=== PATIENT | female | born 1935 | race Caucasian/White ===

== ENCOUNTER 2017-08-15 16:15 | Inpatient (IN) ==
--- NOTE | 2017-08-16 17:22 | Internal Med History&Physical ---
Date of Encounter: 08/16/17 Time of Encounter: 17:20 Assessment and Plan (1) Physical deconditioning Current visit: Yes Status: Acute Will support him medically while she enters into physical and occupational therapies. Will consult physical medicine to see if she can benefit from any other modalities, etc. (2) COPD exacerbation Current visit: No Status: Acute We will continue on current regimen including tapering of steroids. She will be maintained on nebulized aerosols as ordered and breakthrough albuterol, as well. (3) Hypertension Current visit: No Status: Chronic Clinically stable. We will continue home regimen and follow. Qualifiers: Hypertension type: essential hypertension Qualified Code(s): I10 - Essential (primary) hypertension (4) DVT prophylaxis Current visit: No Status: Acute We will use heparin subcutaneously. (5) Hypoxia Current visit: No Status: Acute We will use oxygen supplementation as needed and follow. (6) Hyponatremia Current visit: No Status: Chronic This was most recently mild but we will follow. (7) Hypokalemia Current visit: Yes Status: Acute This is marginal but she is on steroids so we will follow and will check magnesium level. Internal Medicine - H&P: HPI Admitted From: Intrahospital Transfer Plans for Post Hospital Care: Home History of present illness: Ms. Perez is a 82 year old female With recently diagnosed COPD (about 3 or 4 months ago) she states that her breathing has been worsening over the last month but over the few days prior to her admission at [facility] in [place], she had progressively worsening shortness of breath and nocturnal cough. Her cough has been nonproductive, often taking her breath before admission, and making her dyspneic on exertion and at rest. She denies hemoptysis. She had no sore throat, loss of voice, diaphoresis, no fever, respiratory illness exposure, etc. Upon admission to the hospital, she was found to be hypoxic, was placed on oxygen supplementation, and given IV steroids. She improved with treatment but was markedly weak and unsteady on her legs. For this reason, she is transferred here for rehabilitation and returned to function. While hospitalized, she developed hoarseness in her voice remains "squeaky." She lives independently, since being . She has a son who lives nearby and is supported by her son and his . She smoked as a young adult but stopped 45 or 50 years ago. She has a history of depression and anxiety for which she takes quite a pain and Ativan. She is allergic to codeine which caused suicidal ideation. She has no other history of suicidal ideation or attempt. Patient has no complaint of chest discomfort, dyspnea, orthopnea, palpitations, nausea or vomiting, constipation or diarrhea, other changes in bowel habits, difficulty with urination, rash or itching, or other new complaints, except as mentioned above. Review of systems is otherwise unremarkable. Past Med Surg Social Fam HX - Past Medical History Medical history: arthritis, COPD, hypertension Psychiatric history: no psych history - Past Surgical History Surgical History: cholecystectomy, hysterectomy, other - Social History Smoking Status: Former smoker Smokeless Tobacco Status: No Alcohol use: none Drug use: none Internal Medicine - H&P: Meds Albuterol Sulfate [Proair Hfa] 2 puff IH Q4H PRN 12/05/15 [History] Amlodipine Besylate 10 mg PO DAILY 12/05/15 [History] Aspirin Enteric Coated [Aspirin EC] 81 mg PO DAILY 12/05/15 [History] Cholecalciferol (D-3) [Vitamin D] 5,000 unit PO DAILY 12/05/15 [History] LORazepam [Ativan] 0.5 mg PO QAM AND QHS 12/05/15 [History] Losartan Potassium [Cozaar] 100 mg PO DAILY 12/05/15 [History] Meclizine HCl [Verticalm] 25 mg PO BID PRN 12/05/15 [History] Metoprolol Tartrate [Lopressor] 50 mg PO DAILY 12/05/15 [History] Naproxen Sodium [Aleve] 220 mg PO BID PRN 12/05/15 [History] Pravastatin Sodium [Pravachol] 40 mg PO HS 12/05/15 [History] Quetiapine Fumarate [Seroquel] 25 mg PO QAM AND QHS 12/05/15 [History] Budesonide/Formoterol 160/4.5 [Symbicort 160/4.5] 2 puff IH BIDR 08/13/17 [ History] Ipratropium [place] 1 - 2 spray NS BID PRN 08/13/17 [History] Ipratropium/Albuterol Neb [Duoneb] 3 ml IH Q6H PRN 08/13/17 [History] GuaiFENesin ER [Mucinex] 600 mg PO BID tbbp.12hr 08/16/17 [Rx] GuaiFENesin/Dextromethorphan [Robitussin/Dm] 10 ml PO Q6HR PRN udc 08/16/17 [Rx ] Loratadine [Claritin] 10 mg PO DAILY tablet 08/16/17 [Rx] predniSONE [PredniSONE] See Taper PO DAILY #30 tablet 08/16/17 [Rx] 3 Allergy/AdvReac Type Severity Reaction Status Date / Time codeine AdvReac Severe Depression Verified 08/13/17 13:02 All Systems PM: A 10-system review of systems was performed and is negative for pertinent findings except as documented above in the HPI. - Constitutional Exam: Examinatioin: (Except as mentioned above): General: In no apparent distress, alert and oriented 3. Head: Atraumatic and normocephalic. Eyes: Extraocular muscles are intact, pupils equal round and reactive to light and accommodation. Sclerae anicteric. Ears: External ears are normal to inspection and hearing is grossly normal. Nose: Patent without lesion noted. Mouth: No intraoral lesions seen. Dentition is unremarkable. Neck: Supple with trachea midline. There is no thyromegaly or adenopathy and carotids are 2+ without bruit heard. Respiratory: No use of accessory muscles. She has diffuse sonorous rhonchi with many upper airway sounds in her voice is hoarse. She has prolonged expiratory phase. She coughs frequently during exam. Cough is moist but apparently nonproductive. Cardiovascular: Regular rate and rhythm without murmur appreciated. Abdomen: Bowel sounds are normal. No hepatosplenomegaly masses or tenderness. Extremities: No cyanosis clubbing or edema. Neurological: A and O 3. Cranial nerves II through XII are intact. No focal deficits and no abnormal movements or postures. Skin: Warm and non-diaphoretic with no lesions noted. Breasts, pelvic and rectal: Not examined.
[2017-08-16] MEDS ORDERED: cloNIDine HCl 0.1 MG TABLET PO PRN (18:04)
[2017-08-16] MEDS: *HR* LORazepam 1 MG TABLET PO SCH (21:14)
[2017-08-16] MEDS: Budesonide/Formoterol 160/4.5 MDI IH SCH (21:21)
[2017-08-16] MEDS: Ipratropium/Albuterol Neb 3 ML IH PRN (21:41)
[2017-08-17 05:00] LABS: Basophils % 0.2 %; Hematocrit 34.8 % (35.3-44.9); Hemoglobin 11.5 g/dL (11.5-15.4); Immature Granulocytes % 0.8 % (0-4); Lymphocytes # 1.3 K/mcL (0.6-4.6); Lymphocytes % 26.9 %; Mean Corpuscular Hemoglobin 29.9 pg (28.0-33.3); Mean Corpuscular Volume 90.6 fL (83.0-100.0); Mean Platelet Volume 9.9 fL (9.4-12.4); Monocytes # 0.4 K/mcL (0.0-1.3); Monocytes % 8.4 %; Neutrophils # 3.1 K/mcL (1.6-8.9); Platelet Count 237 K/mcL (140-400); Red Blood Count 3.84 M/mcL (3.82-4.97); Red Cell Distribution Width 12.2 % (11.5-14.5); Segmented Neutrophils % 63.7 %
[2017-08-17 05:26] LABS: BUN/Creatinine Ratio 15 (6-26); Blood Urea Nitrogen 10 mg/dL (8-23); Calcium 8.6 mg/dL (8.6-10.3); Carbon Dioxide 31 mEq/L (23-29); Chloride 97 mEq/L (98-107); Glucose 103 mg/dL (70-105); Osmolality,Calculated 275 (280-300); Potassium 3.6 mEq/L (3.5-5.1); Sodium 133 mEq/L (136-145); eGFR For African Americans > 60 (> 60); eGFR For Non-African Americans > 60 (> 60)
[2017-08-17 05:53] LABS: Platelet Estimate Normal (Normal)
[2017-08-17] MEDS: *HR* Heparin 5,000 UNIT/ML VIAL SQ SCH ×2 (05:55→18:39)
[2017-08-17] MEDS: amLODIPine 5 MG TABLET PO SCH (10:08)
[2017-08-17] MEDS: Aspirin Enteric Coated 81 MG Tablet PO SCH (10:08)
[2017-08-17] MEDS: Ipratropium/Albuterol Neb 3 ML IH PRN ×2 (10:08→20:59)
[2017-08-17] MEDS: predniSONE 10 MG TABLET PO SCH (10:12)
[2017-08-17] MEDS: Cholecalciferol (D-3) 1,000 UNIT TABLET PO SCH (10:12)
[2017-08-17] MEDS: *HR* LORazepam 1 MG TABLET PO SCH ×2 (10:12→20:55)
[2017-08-17] MEDS: Loratadine 10 MG TABLET PO SCH (10:13)
[2017-08-17] MEDS: Budesonide/Formoterol 160/4.5 MDI IH SCH ×2 (10:21→20:58)
--- NOTE | 2017-08-17 14:02 | Internal Med Progress Note ---
Date of Encounter: 08/17/17 Time of Encounter: 14:02 - Assessment and plan (1) Physical deconditioning Current Visit: Yes Status: Acute Assessment and plan: Therapy to begin tomorrow. Will follow. (2) COPD exacerbation Current Visit: No Status: Acute Assessment and plan: We will continue as planned. Still with significant respiratory impairment. Hopefully, we will see resolution over the next few days. If hypoxia persists, will consider chest x-ray repeat tomorrow. (3) Hypertension Current Visit: No Status: Chronic Assessment and plan: Clinically stable. We will continue home regimen and follow. Qualifiers: Hypertension type: essential hypertension Qualified Code(s): I10 - Essential (primary) hypertension (4) DVT prophylaxis Current Visit: No Status: Acute (5) Hypoxia Current Visit: No Status: Acute Assessment and plan: See above. (6) Hyponatremia Current Visit: No Status: Chronic Assessment and plan: Recheck tomorrow. (7) Hypokalemia Current Visit: Yes Status: Acute Assessment and plan: Recheck tomorrow. - Time Spent With Patient 25 - 35 minutes - Subjective Interval history: Patient is without complaint. Had only one significant episode of prolonged coughing this morning. Nurses note that her oxygen drops with ambulation. They have begun supplemental oxygen. She notes that her feet are cold, bilaterally. She denies other problems. Patient has no complaint of chest discomfort, dyspnea, orthopnea, palpitations, nausea or vomiting, constipation or diarrhea, other changes in bowel habits, difficulty with urination, rash or itching, or other new complaints, except as mentioned above. Review of systems is otherwise unremarkable. - Constitutional Vitals: Temp Pulse Resp BP Pulse Ox 97.4 F L 102 18 126/70 93 08/17/17 11:00 08/17/17 11:00 08/17/17 11:00 08/17/17 11:00 08/17/17 11:00 Exam: Examinatioin: (Except as mentioned above): General: In no apparent distress. Alert and oriented 3. Nondiaphoretic. Head: Atraumatic and normocephalic. Respiratory: No use of accessory muscles. Lungs are clear throughout. Normal airflow. Cardiovascular: Regular rate and rhythm without murmur appreciated. Abdomen: Bowel sounds are normal. No hepatosplenomegaly mass or tenderness appreciated. Patient is examined upright in chair and this also limits exam. Extremities: No cyanosis clubbing or edema. Skin: Warm and non-diaphoretic with no new lesions noted. Internal Medicine: Result - Labs CBC & Chem 7: 08/17/17 04:35 08/17/17 04:35 Labs: Short CBC 08/17/17 Range/Units 04:35 WBC 4.9 (4.3-11.1) K/mcL Hgb 11.5 (11.5-15.4) g/dL Hct 34.8 L (35.3-44.9) % Plt Count 237 (140-400) K/mcL Neutrophils # 3.1 (1.6-8.9) K/mcL BMP 08/17/17 04:35 Sodium 133 L Potassium 3.6 Chloride 97 L Carbon Dioxide 31 H BUN 10 Creatinine 0.66 Glucose 103 Calcium 8.6 Consult Discharge Plan - Plan Referrals: Marcus Hinojosa MD [Primary Care Provider] -
[2017-08-18] MEDS: *HR* Heparin 5,000 UNIT/ML VIAL SQ SCH ×2 (04:39→17:57)
[2017-08-18] MEDS: Cholecalciferol (D-3) 1,000 UNIT TABLET PO SCH (09:26)
[2017-08-18] MEDS: Loratadine 10 MG TABLET PO SCH (09:26)
[2017-08-18] MEDS: *HR* LORazepam 1 MG TABLET PO SCH ×2 (09:26→21:14)
[2017-08-18] MEDS: predniSONE 10 MG TABLET PO SCH (09:27)
[2017-08-18] MEDS: Aspirin Enteric Coated 81 MG Tablet PO SCH (09:28)
[2017-08-18] MEDS: amLODIPine 5 MG TABLET PO SCH (09:28)
[2017-08-18] MEDS: Budesonide/Formoterol 160/4.5 MDI IH SCH ×2 (09:33→21:10)
--- NOTE | 2017-08-18 11:41 | Internal Med Progress Note ---
Date of Encounter: 08/18/17 Time of Encounter: 11:39 - Assessment and plan (1) COPD exacerbation Current Visit: No Status: Acute Assessment and plan: Improving. Continue inhaled meds and oxygen. Will try to wean O2. (2) Hypertension Current Visit: No Status: Chronic Assessment and plan: Controlled with current medications. Will monitor blood pressure. Qualifiers: Hypertension type: essential hypertension Qualified Code(s): I10 - Essential (primary) hypertension (3) Physical deconditioning Current Visit: Yes Status: Acute Assessment and plan: PT\OT to eval and treat. Will follow progress. - Time Spent With Patient less than 15 minutes - Subjective Interval history: Patient here for physical deconditioning. Will be participating in PT\OT. Currently on 1 L of oxygen per nasal cannula with O2 sats remaining 97%. Patient denies shortness of breath, chest pain, cough, fever, chills, nausea, vomiting or diarrhea. - Constitutional Vitals: Temp Pulse Resp BP Pulse Ox 98.2 F 81 16 125/68 97 08/18/17 07:00 08/18/17 07:00 08/18/17 07:00 08/18/17 07:00 08/18/17 07:00 General appearance: Present: A&O X 3, pleasant, no acute distress, answers questions appropriately - Head Head exam: Present: atraumatic, normocephalic - Eye Eye exam: Present: PERRL, conjuntiva pink, sclera anicteric Pupils: Present: PERRL - Neck Neck exam general surgery: Present: supple, trachea midline. Absent: lymphadenopathy - Respiratory Respiratory exam: Present: CTAB. Absent: accessory muscle use, rales, rhonchi, wheezes Additional comments: Diminished and bilateral basis - Cardiovascular Cardiovascular exam: Present: RRR, +S1, +S2. Absent: diastolic murmur, gallop, rubs, systolic murmur - GI/Abdominal GI/Abdominal exam: Present: normal bowel sounds, soft, no peritoneal signs. Absent: distended, tenderness - Extremities Exam Extremities exam: Present: warm, radial pulses palpable and symmetrical. Absent : calf tenderness, cyanotic, pedal edema - Neurological Exam Neurological exam: Present: CN II-XII intact, oriented X3, no focal deficits. Absent: pronater drift, facial droop, speech deficit - Skin Skin exam: Present: dry, intact Internal Medicine: Result - Labs CBC & Chem 7: 08/17/17 04:35 08/17/17 04:35 Consult Discharge Plan - Plan Referrals: Marcus Hinojosa MD [Primary Care Provider] -
--- NOTE | 2017-08-18 20:37 | Physcial Medicine-Consult Note ---
Date of Encounter: 08/18/17 Time of Encounter: 16:10 Physical Medicine - HPI - Data of Consult Requesting Physician: Augusto Garcia MD Primary Care Provider: Marcus Hinojosa MD - Consult Narrative History of present illness: Ms. Perez is a 82 year old right handed female admitted to [place] 08-13-2017 with exacerbation of COPD. She became debilitated with pulmonary impairment. IPR was medically necessary. She is still having severe, minimally productive cough with clear sputum. CC: Augusto Garcia MD Past Med Surg Social Fam HX - Past Medical History Medical history: arthritis, COPD, hypertension Psychiatric history: anxiety - Past Surgical History Surgical History: cholecystectomy, hysterectomy, other - Social History Smoking Status: Former smoker Smokeless Tobacco Status: No Alcohol use: none Drug use: none Medications and Allergies Albuterol Sulfate [Proair Hfa] 2 puff IH Q4H PRN 12/05/15 [History] Amlodipine Besylate 10 mg PO DAILY 12/05/15 [History] Aspirin Enteric Coated [Aspirin EC] 81 mg PO DAILY 12/05/15 [History] Cholecalciferol (D-3) [Vitamin D] 5,000 unit PO DAILY 12/05/15 [History] LORazepam [Ativan] 0.5 mg PO QAM AND QHS 12/05/15 [History] Losartan Potassium [Cozaar] 100 mg PO DAILY 12/05/15 [History] Meclizine HCl [Verticalm] 25 mg PO BID PRN 12/05/15 [History] Metoprolol Tartrate [Lopressor] 50 mg PO DAILY 12/05/15 [History] Naproxen Sodium [Aleve] 220 mg PO BID PRN 12/05/15 [History] Pravastatin Sodium [Pravachol] 40 mg PO HS 12/05/15 [History] Quetiapine Fumarate [Seroquel] 25 mg PO QAM AND QHS 12/05/15 [History] Budesonide/Formoterol 160/4.5 [Symbicort 160/4.5] 2 puff IH BIDR 08/13/17 [ History] Ipratropium [place] 1 - 2 spray NS BID PRN 08/13/17 [History] Ipratropium/Albuterol Neb [Duoneb] 3 ml IH Q6H PRN 08/13/17 [History] GuaiFENesin ER [Mucinex] 600 mg PO BID tbbp.12hr 08/16/17 [Rx] GuaiFENesin/Dextromethorphan [Robitussin/Dm] 10 ml PO Q6HR PRN udc 08/16/17 [Rx ] Loratadine [Claritin] 10 mg PO DAILY tablet 08/16/17 [Rx] predniSONE [PredniSONE] See Taper PO DAILY #30 tablet 08/16/17 [Rx] 3 Allergy/AdvReac Type Severity Reaction Status Date / Time codeine AdvReac Severe Depression Verified 08/13/17 13:02 All systems: reviewed and no additional remarkable complaints except as stated ( Pulmonary.) Physical Medicine - Exam - Constitutional Vitals: Temp Pulse Resp BP Pulse Ox 98.0 F 95 18 143/75 93 08/18/17 19:08 08/18/17 19:08 08/18/17 19:08 08/18/17 19:08 08/18/17 19:08 - Head Head exam: Present: atraumatic, normocephalic - Eye Eye exam: Present: EOMI - ENT ENT exam: Present: mucous membranes moist - Neck Neck exam: Present: full ROM - Respiratory Respiratory exam: Present: decreased breath sounds - Cardiovascular Cardiovascular exam: Present: RRR - GI/Abdominal GI/Abdominal exam: Present: normal bowel sounds - Extremities Exam Extremities exam: Present: normal inspection Additional comments: Strength 4-/5 all four. No CCE - Neurological Exam Neurological exam: Present: alert, CN II-XII intact, oriented X3, reflexes normal, strengths equal and symetr throughout - Psychiatric Psychiatric exam: Present: normal affect, normal mood, suicidal ideation - Skin Skin exam: Present: intact, normal color Physical Medicine - Results - Labs CBC & Chem 7: 08/17/17 04:35 08/17/17 04:35 - Impressions ITS Impressions Chest X-Ray 08/18/17 16:55 IMPRESSION: 1. No acute cardiopulmonary process. 2. Emphysema. D/ / Benjamin Shea MD / Benjamin Shea MD Interpreting Provider: Benjamin Shea MD Consult Discharge Plan - Plan Referrals: Marcus Hinojosa MD [Primary Care Provider] -
[2017-08-18] MEDS ORDERED: Mag Hydrox/Al Hydrox/Simeth 30 ML UDC PO PRN (20:46)
[2017-08-18] MEDS: Ipratropium/Albuterol Neb 3 ML IH PRN (21:15)
[2017-08-19] MEDS: *HR* Heparin 5,000 UNIT/ML VIAL SQ SCH ×2 (05:50→16:09)
--- NOTE | 2017-08-19 07:54 | Internal Med Progress Note ---
Date of Encounter: 08/19/17 Time of Encounter: 07:52 - Assessment and plan (1) Physical deconditioning Current Visit: Yes Status: Acute Assessment and plan: Therapy is continuing.. (2) COPD exacerbation Current Visit: No Status: Acute Assessment and plan: Chest x-ray was clear yesterday except for signs of emphysema. No signs of infiltrate or failure. We will continue to supplement with aerosols and oxygen. Because of her persistent dyspnea and hypoxia, will return to IV steroids for a few days and follow. (3) Hypertension Current Visit: No Status: Chronic Assessment and plan: Clinically stable. We will continue home regimen and follow. Qualifiers: Hypertension type: essential hypertension Qualified Code(s): I10 - Essential (primary) hypertension (4) DVT prophylaxis Current Visit: No Status: Acute Assessment and plan: Heparin subcutaneously. (5) Hypoxia Current Visit: No Status: Acute Assessment and plan: See above. (6) Hyponatremia Current Visit: No Status: Chronic Assessment and plan: Repeat lab is pending. (7) Hypokalemia Current Visit: Yes Status: Acute Assessment and plan: Resolved. - Time Spent With Patient 25 - 35 minutes - Subjective Interval history: Patient remains short of breath and her cough seems to be improving. She still is not making any phlegm with cough. She gets dyspnea with exertion. No chest heaviness or discomfort. She notes that she has still not had a bowel movement since her arrival here. She has no abdominal pain or cramping. Patient has no complaint of chest discomfort, dyspnea, orthopnea, palpitations, nausea or vomiting, constipation or diarrhea, other changes in bowel habits, difficulty with urination, rash or itching, or other new complaints, except as mentioned above. Review of systems is otherwise unremarkable. - Constitutional Vitals: Temp Pulse Resp BP Pulse Ox 98.0 F 90 18 121/76 99 08/19/17 07:00 08/19/17 07:00 08/19/17 07:00 08/19/17 07:00 08/19/17 07:00 General appearance: Present: A&O X 3, pleasant, no acute distress, answers questions appropriately Exam: Examinatioin: (Except as mentioned above): General: In no apparent distress. Alert and oriented 3. Nondiaphoretic. Head: Atraumatic and normocephalic. Respiratory: No use of accessory muscles. Lungs are much improved in terms of rhonchi but she still has increased expiratory phase. No coughing during exam. Cardiovascular: Regular rate and rhythm without murmur appreciated. Abdomen: Bowel sounds are normal. No hepatosplenomegaly mass or tenderness appreciated. Extremities: No cyanosis clubbing or edema. Skin: Warm and non-diaphoretic with no new lesions noted. Internal Medicine: Result - Labs CBC & Chem 7: 08/17/17 04:35 08/17/17 04:35 - Impressions Impressions Chest X-Ray 08/18/17 16:55 IMPRESSION: 1. No acute cardiopulmonary process. 2. Emphysema. D/ / Benjamin Shea MD / Benjamin Shea MD Interpreting Provider: Benjamin Shea MD Consult Discharge Plan - Plan Referrals: Marcus Hinojosa MD [Primary Care Provider] -
[2017-08-19 07:55] LABS: ABG Base Excess 5 mEq/L (-2 to 3); ABG HCO3 30 mEq/L (21-27); ABG Oxygen Saturation 97 % (95-98); ABG PCO2 43 mmHg (35-45); ABG PH 7.45 pH Units (7.32-7.45); ABG PO2 87 mmHg (85-104); ABG TCO2 31 mEq/L (20-26)
[2017-08-19] MEDS ORDERED: methylPREDNISolone 60 MG in 0.9 % Sodium Chloride 50 ML IVPB ONE (07:59)
[2017-08-19] MEDS ORDERED: methylPREDNISolone 60 MG in 0.9 % Sodium Chloride 100 ML IVPB ONE (08:15)
[2017-08-19] MEDS ORDERED: Bisacodyl 10 MG RECTAL SUPPOSITORY RC SCH (09:00)
[2017-08-19] MEDS: Aspirin Enteric Coated 81 MG Tablet PO SCH (09:21)
[2017-08-19] MEDS: *HR* LORazepam 1 MG TABLET PO SCH ×2 (09:21→20:49)
[2017-08-19] MEDS: amLODIPine 5 MG TABLET PO SCH (09:21)
[2017-08-19] MEDS: Cholecalciferol (D-3) 1,000 UNIT TABLET PO SCH (09:21)
[2017-08-19] MEDS: Loratadine 10 MG TABLET PO SCH (09:22)
[2017-08-19] MEDS: methylPREDNISolone 125 MG/2 ML VIAL IVP SCH ×4 (09:30→23:42)
[2017-08-19] MEDS: Budesonide/Formoterol 160/4.5 MDI IH SCH ×2 (10:29→20:46)
[2017-08-19] MEDS: Sennosides 8.6 MG TABLET PO SCH ×2 (10:32→20:48)
[2017-08-20] MEDS: *HR* Heparin 5,000 UNIT/ML VIAL SQ SCH ×2 (05:27→16:45)
[2017-08-20] MEDS: methylPREDNISolone 125 MG/2 ML VIAL IVP SCH ×4 (05:27→23:45)
[2017-08-20] MEDS: Ipratropium/Albuterol Neb 3 ML IH PRN (08:12)
[2017-08-20] MEDS: Cholecalciferol (D-3) 1,000 UNIT TABLET PO SCH (08:14)
[2017-08-20] MEDS: *HR* LORazepam 1 MG TABLET PO SCH ×2 (08:14→21:35)
[2017-08-20] MEDS: Sennosides 8.6 MG TABLET PO SCH ×2 (08:15→21:36)
[2017-08-20] MEDS: Loratadine 10 MG TABLET PO SCH (08:15)
[2017-08-20] MEDS: amLODIPine 5 MG TABLET PO SCH (08:15)
[2017-08-20] MEDS: Aspirin Enteric Coated 81 MG Tablet PO SCH (08:15)
--- NOTE | 2017-08-20 11:53 | Internal Med Progress Note ---
Date of Encounter: 08/20/17 Time of Encounter: 11:51 - Assessment and plan (1) COPD exacerbation Current Visit: No Status: Acute Assessment and plan: Improving. continue IV steroids. Continue inhaled meds and oxygen. Will try to wean O2. (2) Hypertension Current Visit: No Status: Chronic Assessment and plan: Controlled with current medications. Will monitor blood pressure. Qualifiers: Hypertension type: essential hypertension Qualified Code(s): I10 - Essential (primary) hypertension (3) Physical deconditioning Current Visit: Yes Status: Acute Assessment and plan: PT\OT to eval and treat. Will follow progress. - Time Spent With Patient less than 15 minutes - Subjective Interval history: Patient here for physical deconditioning. Participating well with therapy. Ambulating with Walker with assistance. Currently on 1 L of oxygen per nasal cannula with O2 sats remaining 93%. Patient denies shortness of breath, chest pain, cough, fever, chills, nausea, vomiting or diarrhea. did not wear O2 at home. will continue IV steroids and inhaled meds. will try to wean off O2. - Constitutional Vitals: Temp Pulse Resp BP Pulse Ox 98.4 F 99 22 145/76 90 08/20/17 07:37 08/20/17 07:37 08/20/17 07:37 08/20/17 07:37 08/20/17 07:37 General appearance: Present: A&O X 3, pleasant, no acute distress, answers questions appropriately - Head Head exam: Present: atraumatic, normocephalic - Eye Eye exam: Present: PERRL, conjuntiva pink, sclera anicteric Pupils: Present: PERRL - Neck Neck exam general surgery: Present: supple, trachea midline. Absent: lymphadenopathy - Respiratory Respiratory exam: Present: CTAB. Absent: accessory muscle use, rales, rhonchi, wheezes Additional comments: diminshed bilat bases. - Cardiovascular Cardiovascular exam: Present: RRR, +S1, +S2. Absent: diastolic murmur, gallop, rubs, systolic murmur - GI/Abdominal GI/Abdominal exam: Present: normal bowel sounds, soft, no peritoneal signs. Absent: distended, tenderness - Extremities Exam Extremities exam: Present: warm, radial pulses palpable and symmetrical. Absent : calf tenderness, cyanotic, pedal edema - Neurological Exam Neurological exam: Present: CN II-XII intact, oriented X3, no focal deficits. Absent: pronater drift, facial droop, speech deficit - Skin Skin exam: Present: dry, intact Internal Medicine: Result - Labs CBC & Chem 7: 08/17/17 04:35 08/17/17 04:35 - ABG Interpretation ABG results: ABG ABG pH 7.45 pH Units (7.32-7.45) 08/19/17 07:48 ABG pCO2 43 mmHg (35-45) 08/19/17 07:48 ABG pO2 87 mmHg (85-104) 08/19/17 07:48 ABG O2 Saturation 97 % (95-98) 08/19/17 07:48 Consult Discharge Plan - Plan Referrals: Marcus Hinojosa MD [Primary Care Provider] - 08/25/17 2:00 pm (follow up appointment)
[2017-08-20] MEDS: Budesonide/Formoterol 160/4.5 MDI IH SCH ×2 (12:50→21:37)
[2017-08-21] MEDS: methylPREDNISolone 125 MG/2 ML VIAL IVP SCH ×3 (05:30→16:34)
[2017-08-21] MEDS: Budesonide/Formoterol 160/4.5 MDI IH SCH ×2 (09:06→22:48)
[2017-08-21] MEDS: Ipratropium/Albuterol Neb 3 ML IH PRN ×2 (09:06→16:35)
[2017-08-21] MEDS: Sennosides 8.6 MG TABLET PO SCH ×2 (09:07→20:49)
[2017-08-21] MEDS: Aspirin Enteric Coated 81 MG Tablet PO SCH (09:08)
[2017-08-21] MEDS: Cholecalciferol (D-3) 1,000 UNIT TABLET PO SCH (09:08)
[2017-08-21] MEDS: Loratadine 10 MG TABLET PO SCH (09:08)
[2017-08-21] MEDS: amLODIPine 5 MG TABLET PO SCH (09:08)
[2017-08-21] MEDS: *HR* LORazepam 1 MG TABLET PO SCH ×2 (09:09→20:45)
--- NOTE | 2017-08-21 13:39 | Internal Med Progress Note ---
Date of Encounter: 08/21/17 Time of Encounter: 13:36 - Assessment and plan (1) COPD exacerbation Current Visit: Yes Status: Acute Assessment and plan: Patient continues to have dyspnea on exertion. Lungs currently are clear but remained diminished throughout lower jones. Patient also complains of chronic cough. Afebrile. Remains on oxygen at 1 L with saturation greater than 90%. Respiratory effort appears relaxed while at rest. We will continue with current medications and bronchodilators. We will continue to wean oxygen. We will obtain a echocardiogram for evaluation. (2) Hypertension Current Visit: Yes Status: Chronic Assessment and plan: Vital signs been stable. We will continue with current medications. Qualifiers: Hypertension type: essential hypertension Qualified Code(s): I10 - Essential (primary) hypertension (3) Depression Current Visit: Yes Status: Acute Assessment and plan: Patient discussed her hopes of recovering her present condition to a level of health she experienced several years ago. Patient's current status and probable prognosis was discussed at length with her along with her current goals and medical management planned. Patient was in agreement and stated understanding. We will continue to monitor patient closely for depression. Qualifiers: Depression Type: unspecified Qualified Code(s): F32.9 - Major depressive disorder, single episode, unspecified - Time Spent With Patient less than 15 minutes - Subjective Interval history: Pt continue to c/o dyspnea during exertion. States that she has the sob during therapy after ambulating >50ft. Patient with complaints of chronic cough, which she states is usually potentiated by mobilization and when first awakening in the morning. Patient states minimal sputum production, stating that she has difficulty expelling any sputum. Patient has been stating concerns about her declining health, making statements that she hopes to return back to her previous state of health during the prior several years. Patient's current medical issues were discussed at length with her what to include our current goals and medical management. - Constitutional Vitals: Temp Pulse Resp BP Pulse Ox 98.2 F 103 17 161/89 95 08/21/17 07:43 08/21/17 07:43 08/21/17 07:43 08/21/17 07:43 08/21/17 07:43 General appearance: Present: A&O X 3, pleasant, no acute distress, answers questions appropriately - Head Head exam: Present: atraumatic, normocephalic - Eye Eye exam: Present: PERRL, conjuntiva pink, sclera anicteric Pupils: Present: PERRL - Neck Neck exam general surgery: Present: supple, trachea midline. Absent: lymphadenopathy - Respiratory Respiratory exam: Present: CTAB. Absent: accessory muscle use, rales, rhonchi, wheezes Additional comments: Patient currently is clear to upper jones with no wheezes heard. Noted diminished breath sounds to lower half of lung jones. Respiratory effort appears relaxed well at rest. Patient currently remains on 1 L of oxygen with saturation greater than 90% - Cardiovascular Cardiovascular exam: Present: RRR, +S1, +S2. Absent: diastolic murmur, gallop, rubs, systolic murmur - GI/Abdominal GI/Abdominal exam: Present: normal bowel sounds, soft, no peritoneal signs. Absent: distended, tenderness - Extremities Exam Extremities exam: Present: warm, radial pulses palpable and symmetrical. Absent : calf tenderness, cyanotic, pedal edema - Neurological Exam Neurological exam: Present: CN II-XII intact, oriented X3, no focal deficits. Absent: pronater drift, facial droop, speech deficit - Psychiatric Psychiatric exam: Present: depressed - Skin Skin exam: Present: dry, intact Internal Medicine: Result - Labs CBC & Chem 7: 08/17/17 04:35 08/17/17 04:35 - ABG Interpretation ABG results: ABG ABG pH 7.45 pH Units (7.32-7.45) 08/19/17 07:48 ABG pCO2 43 mmHg (35-45) 08/19/17 07:48 ABG pO2 87 mmHg (85-104) 08/19/17 07:48 ABG O2 Saturation 97 % (95-98) 08/19/17 07:48 Consult Discharge Plan - Plan Referrals: Marcus Hinojosa MD [Primary Care Provider] - 08/25/17 2:00 pm (follow up appointment)
[2017-08-21] MEDS: *HR* Heparin 5,000 UNIT/ML VIAL SQ SCH ×2 (13:59→16:35)
[2017-08-22] MEDS: methylPREDNISolone 125 MG/2 ML VIAL IVP SCH ×2 (00:46→06:00)
[2017-08-22] MEDS: *HR* Heparin 5,000 UNIT/ML VIAL SQ SCH (06:07)
[2017-08-22 08:00] VITALS: BP 154/83
[2017-08-22] MEDS: Loratadine 10 MG TABLET PO SCH (10:11)
[2017-08-22] MEDS: amLODIPine 5 MG TABLET PO SCH (10:11)
[2017-08-22] MEDS: Sennosides 8.6 MG TABLET PO SCH (10:12)
[2017-08-22] MEDS: Cholecalciferol (D-3) 1,000 UNIT TABLET PO SCH (10:12)
[2017-08-22] MEDS: *HR* LORazepam 1 MG TABLET PO SCH (10:12)
[2017-08-22] MEDS: Aspirin Enteric Coated 81 MG Tablet PO SCH (10:12)
[2017-08-22] MEDS: Budesonide/Formoterol 160/4.5 MDI IH SCH (10:27)
[2017-08-22] MEDS ORDERED: predniSONE 20 MG TABLET PO SCH (12:00)
--- NOTE | 2017-08-22 12:05 | Discharge Summary ---
Orders not resulted at time of discharge: Pending orders 08/20/17 17:35 Respiratory Infection Panel [MOLMIC] Routine 08/21/17 13:42 EV echocardiogram Routine Date of Encounter: 08/22/17 Time of Encounter: 11:59 - Discharge Diagnosis (1) COPD exacerbation Priority: Primary Status: Acute Comments: Pt continues to have dyspnea during ambulation, but during continuous oximetry monitor she has alway maintained a ox sat >92% on room air. CXR showed no infectious process. Pt continues with continued occasional cough. Pt to continue on current meds and bronchodialators at home. Will continue patient on titrating prednisone dose over the next several weeks with directions to f/u with her PCP in 1-2 weeks. HH Nx and PT to follow at home. (2) Hypertension Priority: Secondary Status: Chronic Comments: No acute issues during this stay at the facility. Continue on current meds at home. Qualifiers: Hypertension type: essential hypertension Qualified Code(s): I10 - Essential (primary) hypertension (3) Depression Priority: Secondary Status: Acute Comments: No acute issues at this time. Pt to continue on her current meds at home. Qualifiers: Depression Type: unspecified Qualified Code(s): F32.9 - Major depressive disorder, single episode, unspecified Hospital course: Ms. Perez is a 82 year old female with recently diagnosed COPD (about 3 or 4 months ago) she states that her breathing has been worsening over the last month but over the few days prior to her admission at [facility] in [place], she had progressively worsening shortness of breath and nocturnal cough. Her cough has been nonproductive, often taking her breath before admission, and making her dyspneic on exertion and at rest. Upon admission to the hospital, she was found to be hypoxic, was placed on oxygen supplementation, and given IV steroids. She improved with treatment but was markedly weak and unsteady on her legs. For this reason, she is transferred here for rehabilitation and returned to function. Patient progressed well with physical therapy while at this facility, but continues to complain of dyspnea when ambulating greater than 20 feet. Patient was weaned on her oxygen and today ambulated approximately 30-40 feet on room air and maintain a saturation greater than 92%. Continues on cortical steroids and has been discharged with a tapering dose till she is seen by her PCP. No other acute issues were noted during her stay of facility. Patient denies any current discomforts Discharge discussed with: patient Time spent discussing smoking cessation with patient: 3 to 10 minutes - Time Spent with Patient Total time spent providing and/or coordinating discharge services: Less than 30 minutes - Discharge Medications Home Medications: Albuterol Sulfate [Proair Hfa] 2 puff IH Q4H PRN 12/05/15 [History] Amlodipine Besylate 10 mg PO DAILY 12/05/15 [History] Aspirin Enteric Coated [Aspirin EC] 81 mg PO DAILY 12/05/15 [History] Cholecalciferol (D-3) [Vitamin D] 5,000 unit PO DAILY 12/05/15 [History] LORazepam [Ativan] 0.5 mg PO QAM AND QHS 12/05/15 [History] Losartan Potassium [Cozaar] 100 mg PO DAILY 12/05/15 [History] Meclizine HCl [Verticalm] 25 mg PO BID PRN 12/05/15 [History] Metoprolol Tartrate [Lopressor] 50 mg PO DAILY 12/05/15 [History] Naproxen Sodium [Aleve] 220 mg PO BID PRN 12/05/15 [History] Pravastatin Sodium [Pravachol] 40 mg PO HS 12/05/15 [History] Quetiapine Fumarate [Seroquel] 25 mg PO QAM AND QHS 12/05/15 [History] Budesonide/Formoterol 160/4.5 [Symbicort 160/4.5] 2 puff IH BIDR 08/13/17 [ History] Ipratropium [place] 1 - 2 spray NS BID PRN 08/13/17 [History] Ipratropium/Albuterol Neb [Duoneb] 3 ml IH Q6H PRN 08/13/17 [History] GuaiFENesin ER [Mucinex] 600 mg PO BID tbbp.12hr 08/16/17 [Rx] GuaiFENesin/Dextromethorphan [Robitussin/Dm] 10 ml PO Q6HR PRN udc 08/16/17 [Rx ] Loratadine [Claritin] 10 mg PO DAILY tablet 08/16/17 [Rx] predniSONE [PredniSONE] See Taper PO DAILY #30 tablet 08/16/17 [Rx] Allergies/Adverse Reactions: 3 Allergy/AdvReac Type Severity Reaction Status Date / Time codeanders AdvReac Severe Depression Verified 08/13/17 13:02 Date of admission: 08/16/17 16:37 Primary care physician: Marcus Hinojosa MD Consults: 08/16/17 17:00 Consult to Occupational Therapy [CONS] Routine Comment: Evaluate, develop and implement POC Reason for Consult: eval Does patient have active BEDREST order?: No Is patient medically & hemodynamically stable?: Yes Consult to Physical Medicine/Rehab [CONS] Routine Reason for Consult: rehab admit Call Completed: No Consult to Physical Therapy [CONS] Routine Comment: Evaluate, develop and implement POC Reason for Consult: eval Does patient have active BEDREST order?: No Is patient medically & hemodynamically stable?: Yes Consult to Fourth Officer [CONS] Routine Reason for SW Consult: d/c planning Discharging clinician: Augusto Garcia - Constitutional Vitals: Temp Pulse Resp BP Pulse Ox 98.1 F 112 16 154/83 94 08/22/17 07:59 08/22/17 07:59 08/22/17 07:59 08/22/17 07:59 08/22/17 07:59 General appearance: Present: A&O X 3, pleasant, no acute distress, answers questions appropriately - Head Head exam: Present: atraumatic, normocephalic - Eye Eye exam: Present: PERRL, conjuntiva pink, sclera anicteric Pupils: Present: PERRL - Neck Neck exam general surgery: Present: supple, trachea midline. Absent: lymphadenopathy - Respiratory Respiratory exam: Present: CTAB. Absent: accessory muscle use, rales, rhonchi, wheezes Additional comments: Lungs are clear throughout, but noted diminished breath sounds to lower jones. Respiratory effort appears relaxed while at rest. - Cardiovascular Cardiovascular exam: Present: RRR, +S1, +S2. Absent: diastolic murmur, gallop, rubs, systolic murmur - GI/Abdominal GI/Abdominal exam: Present: normal bowel sounds, soft, no peritoneal signs. Absent: distended, tenderness - Extremities Exam Extremities exam: Present: warm, radial pulses palpable and symmetrical. Absent : calf tenderness, cyanotic, pedal edema - Neurological Exam Neurological exam: Present: CN II-XII intact, oriented X3, no focal deficits. Absent: pronater drift, facial droop, speech deficit - Skin Skin exam: Present: dry, intact - Patient Status Disposition: Home Health Service Condition: Good Functional capacity at discharge: uses cane/walker Overall status at discharge: patient is progressing back to baseline - Discharge Instructions Follow Up With: Marcus Hinojosa MD [Primary Care Provider] - 08/25/17 2:00 pm (follow up appointment) - Diet and Activity Activity: ambulate only with your walker, as per physical therapy, increase activity as tolerated, resume usual activities as tolerated Diet: advance to your usual diet
--- NOTE | 2017-08-22 13:34 | Physician Discharge Referral ---
Home Health/Hosp Referral Info Transfer to: Home Health Provider in Charge Post Discharge: PCP - Diagnosis (1) COPD exacerbation Status: Acute (2) Hypertension Status: Chronic (3) Depression Status: Acute - Respiratory Orders Other (please check oximetry saturation during visits) Smoking Cessation: Smoking cessation has been advised. For more information, call the [place] Tobacco Quit Line at 3-591-VIUY-NOW. - Diet/Nutrition Diet/Nutrition Orders: Regular - Activity Activity Orders: Up ad jona - Services Needed Following services are medically necessary services: Nursing, Home Health Aide, Physical Therapy - Transfer Medications Home Medications: Albuterol Sulfate [Proair Hfa] 2 puff IH Q4H PRN 12/05/15 [History] Amlodipine Besylate 10 mg PO DAILY 12/05/15 [History] Aspirin Enteric Coated [Aspirin EC] 81 mg PO DAILY 12/05/15 [History] Cholecalciferol (D-3) [Vitamin D] 5,000 unit PO DAILY 12/05/15 [History] LORazepam [Ativan] 0.5 mg PO QAM AND QHS 12/05/15 [History] Losartan Potassium [Cozaar] 100 mg PO DAILY 12/05/15 [History] Meclizine HCl [Verticalm] 25 mg PO BID PRN 12/05/15 [History] Metoprolol Tartrate [Lopressor] 50 mg PO DAILY 12/05/15 [History] Naproxen Sodium [Aleve] 220 mg PO BID PRN 12/05/15 [History] Pravastatin Sodium [Pravachol] 40 mg PO HS 12/05/15 [History] Quetiapine Fumarate [Seroquel] 25 mg PO QAM AND QHS 12/05/15 [History] Budesonide/Formoterol 160/4.5 [Symbicort 160/4.5] 2 puff IH BIDR 08/13/17 [ History] Ipratropium [place] 1 - 2 spray NS BID PRN 08/13/17 [History] Ipratropium/Albuterol Neb [Duoneb] 3 ml IH Q6H PRN 08/13/17 [History] GuaiFENesin ER [Mucinex] 600 mg PO BID tbbp.12hr 08/16/17 [Rx] GuaiFENesin/Dextromethorphan [Robitussin/Dm] 10 ml PO Q6HR PRN udc 08/16/17 [Rx ] Loratadine [Claritin] 10 mg PO DAILY tablet 08/16/17 [Rx] predniSONE [PredniSONE] See Taper PO DAILY #30 tablet 08/16/17 [Rx] Allergies/Adverse Reactions: 3 Allergy/AdvReac Type Severity Reaction Status Date / Time codeine AdvReac Severe Depression Verified 08/13/17 13:02 Certification: Further, I certify that my clinical findings support that this patient is homebound (i.e. absences from home require considerable and taxing effort and are for medical reasons or mu-ism services or infrequently or short duration when for other reasons) because: Homebound Reason: Patient requires assistance of a person or device to safely leave home, Leaving home requires considerable and taxing effort due to condition, Severity of cardiac or pulmonary status limits activity tolerance Attestation: My signature below is to certify that this patient is under my care and that I, or nurse practitioner, or a physician's accounts receivable assistant working with me, has a face-to -face encounter with this patient.
--- NOTE | 2017-08-22 15:17 | Electrocardiograph Report ---
[place] [id number] Test Date: 2017-08-21 Pat Name: Nina Perez Department: 2001 Room: 105 Gender: F Medicaid Analyst: Charles : 1935 Requested By: Augusto Garcia Order Number: [id number] Reading MD: Rodrick Archibald DO Measurements Intervals [place] Rate: 90 P: 74 KS: 170 QRS: 54 QRSD: 93 T: 53 QT: 340 QTc: 388 Interpretive Statements SINUS RHYTHM Electronically Signed On 08-22-2017 15:15:25 EDT by Rodrick Archibald DO
== END 2017-08-22 18:15 | disposition home health service (06) | DRG 945 ==
LOC: INPGRE 08-16 16:37

== ENCOUNTER 2020-11-20 16:28 | Inpatient (IN) ==
[2020-11-21] MEDS ORDERED: *HR* HYDROcodone/Acet 5/325 mg TABLET PO PRN (13:54)
[2020-11-21] MEDS ORDERED: Acetaminophen 325 MG TABLET PO PRN (18:45)
[2020-11-21] MEDS: tiZANidine 4 MG TABLET PO PRN (21:55)
[2020-11-21] MEDS: QUEtiapine Fumarate 25 MG TABLET PO SCH (21:56)
[2020-11-21] MEDS: Gabapentin 100 MG CAPSULE PO SCH (21:56)
[2020-11-22 04:59] LABS: Basophils # 0.1 K/mcL (0.0-0.2); Basophils % 1.1 %; Eosinophils # 0.3 K/mcL (0.0-0.6); Eosinophils % 5.8 %; Hematocrit 32.2 % (35.3-44.9); Hemoglobin 10.4 g/dL (11.5-15.4); Immature Granulocytes % 0.4 % (0-4); Lymphocytes # 1.6 K/mcL (0.6-4.6); Lymphocytes % 29.2 %; Mean Corpuscular HGB Conc 32.3 g/dL (31.6-35.5); Mean Corpuscular Hemoglobin 29.6 pg (28.0-33.3); Mean Corpuscular Volume 91.7 fL (83.0-100.0); Mean Platelet Volume 11.4 fL (9.4-12.4); Monocytes # 0.5 K/mcL (0.0-1.3); Monocytes % 9.2 %; Neutrophils # 2.9 K/mcL (1.6-8.9); Platelet Count 234 K/mcL (140-400); Red Blood Count 3.51 M/mcL (3.82-4.97); Red Cell Distribution Width 12.4 % (11.5-14.5); Segmented Neutrophils % 54.3 %; White Blood Count 5.3 K/mcL (4.3-11.1)
[2020-11-22 05:17] LABS: Alanine Aminotransferase 7 Units/L (7-52); Albumin 3.6 g/dL (3.5-5.7); Albumin/Globulin Ratio 1.3 (1.1-2.2); Alkaline Phosphatase 44 Units/L (34-104); Aspartate Amino Transferase 11 Units/L (13-39); BUN/Creatinine Ratio 16 (6-26); Bilirubin,Total 0.5 mg/dL (0.3-1.0); Blood Urea Nitrogen 14 mg/dL (8-23); Calcium 9.3 mg/dL (8.6-10.3); Carbon Dioxide 29 mEq/L (23-29); Chloride 103 mEq/L (98-107); Globulin 2.7 g/dL (2.4-3.5); Glucose 87 mg/dL (70-105); Magnesium 1.9 mg/dL (1.6-2.6); Osmolality,Calculated 282 (280-300); Potassium 4.6 mEq/L (3.5-5.1); Sodium 136 mEq/L (136-145); Total Protein 6.3 g/dL (6.4-8.9); eGFR For African Americans > 60 (> 60); eGFR For Non-African Americans > 60 (> 60)
[2020-11-22] MEDS: amLODIPine 5 MG TABLET PO SCH (09:14)
[2020-11-22] MEDS: QUEtiapine Fumarate 25 MG TABLET PO SCH ×2 (09:14→20:55)
[2020-11-22] MEDS: Aspirin Enteric Coated 81 MG Tablet PO SCH (09:14)
[2020-11-22] MEDS: Cholecalciferol (D-3) 1,000 UNIT (25MCG) TABLET PO SCH (09:14)
[2020-11-22] MEDS: tiZANidine 4 MG TABLET PO PRN (20:55)
[2020-11-22] MEDS: Gabapentin 100 MG CAPSULE PO SCH (20:55)
[2020-11-23] MEDS: *HR* Enoxaparin 40 MG/0.4 ML SYRINGE SQ SCH (05:45)
[2020-11-23] MEDS: tiZANidine 4 MG TABLET PO PRN ×2 (10:15→20:28)
[2020-11-23] MEDS: Cholecalciferol (D-3) 1,000 UNIT (25MCG) TABLET PO SCH (10:15)
[2020-11-23] MEDS: amLODIPine 5 MG TABLET PO SCH (10:15)
[2020-11-23] MEDS: Aspirin Enteric Coated 81 MG Tablet PO SCH (10:15)
[2020-11-23] MEDS: QUEtiapine Fumarate 25 MG TABLET PO SCH ×2 (10:15→20:28)
[2020-11-23] MEDS: Gabapentin 100 MG CAPSULE PO SCH (20:27)
[2020-11-24] MEDS: *HR* Enoxaparin 40 MG/0.4 ML SYRINGE SQ SCH (04:46)
[2020-11-24] MEDS: *HR* HYDROcodone/Acet 5/325 mg TABLET PO PRN (10:26)
[2020-11-24] MEDS: QUEtiapine Fumarate 25 MG TABLET PO SCH ×2 (10:26→22:06)
[2020-11-24] MEDS: Aspirin Enteric Coated 81 MG Tablet PO SCH (10:27)
[2020-11-24] MEDS: Cholecalciferol (D-3) 1,000 UNIT (25MCG) TABLET PO SCH (10:27)
[2020-11-24] MEDS: amLODIPine 5 MG TABLET PO SCH (10:27)
[2020-11-24] MEDS: tiZANidine 4 MG TABLET PO PRN (22:10)
[2020-11-24] MEDS: Gabapentin 100 MG CAPSULE PO SCH (22:10)
[2020-11-25] MEDS: *HR* Enoxaparin 40 MG/0.4 ML SYRINGE SQ SCH (05:46)
[2020-11-25] MEDS: Cholecalciferol (D-3) 1,000 UNIT (25MCG) TABLET PO SCH (10:56)
[2020-11-25] MEDS: Aspirin Enteric Coated 81 MG Tablet PO SCH (10:56)
[2020-11-25] MEDS: amLODIPine 5 MG TABLET PO SCH (10:57)
[2020-11-25] MEDS: QUEtiapine Fumarate 25 MG TABLET PO SCH ×2 (10:57→20:40)
[2020-11-25] MEDS: tiZANidine 4 MG TABLET PO PRN (20:40)
[2020-11-25] MEDS: Gabapentin 100 MG CAPSULE PO SCH (20:40)
[2020-11-26] MEDS: *HR* Enoxaparin 40 MG/0.4 ML SYRINGE SQ SCH (05:14)
[2020-11-26] MEDS: Cholecalciferol (D-3) 1,000 UNIT (25MCG) TABLET PO SCH (08:16)
[2020-11-26] MEDS: amLODIPine 5 MG TABLET PO SCH (08:16)
[2020-11-26] MEDS: Aspirin Enteric Coated 81 MG Tablet PO SCH (08:16)
[2020-11-26] MEDS: QUEtiapine Fumarate 25 MG TABLET PO SCH ×2 (08:17→19:54)
[2020-11-26] MEDS: tiZANidine 4 MG TABLET PO PRN (19:54)
[2020-11-26] MEDS: Gabapentin 100 MG CAPSULE PO SCH (19:54)
[2020-11-27 05:06] LABS: Hematocrit 32.5 % (35.3-44.9); Hemoglobin 10.8 g/dL (11.5-15.4); Mean Corpuscular HGB Conc 33.2 g/dL (31.6-35.5); Mean Corpuscular Hemoglobin 30.2 pg (28.0-33.3); Mean Corpuscular Volume 90.8 fL (83.0-100.0); Platelet Count 304 K/mcL (140-400); Red Blood Count 3.58 M/mcL (3.82-4.97); Red Cell Distribution Width 12.3 % (11.5-14.5); White Blood Count 5.6 K/mcL (4.3-11.1)
[2020-11-27 05:23] LABS: Alanine Aminotransferase 10 Units/L (7-52); Albumin 3.5 g/dL (3.5-5.7); Albumin/Globulin Ratio 1.3 (1.1-2.2); Alkaline Phosphatase 68 Units/L (34-104); Aspartate Amino Transferase 15 Units/L (13-39); BUN/Creatinine Ratio 13 (6-26); Bilirubin,Total 0.4 mg/dL (0.3-1.0); Blood Urea Nitrogen 9 mg/dL (8-23); Carbon Dioxide 24 mEq/L (23-29); Chloride 99 mEq/L (98-107); Globulin 2.6 g/dL (2.4-3.5); Glucose 83 mg/dL (70-105); Magnesium 1.7 mg/dL (1.6-2.6); Osmolality,Calculated 272 (280-300); Potassium 3.5 mEq/L (3.5-5.1); Sodium 132 mEq/L (136-145); Total Protein 6.1 g/dL (6.4-8.9); eGFR For African Americans > 60 (> 60); eGFR For Non-African Americans > 60 (> 60)
[2020-11-27] MEDS: *HR* Enoxaparin 40 MG/0.4 ML SYRINGE SQ SCH (06:15)
[2020-11-27] MEDS: QUEtiapine Fumarate 25 MG TABLET PO SCH ×2 (08:01→20:14)
[2020-11-27] MEDS: Aspirin Enteric Coated 81 MG Tablet PO SCH (08:02)
[2020-11-27] MEDS: Cholecalciferol (D-3) 1,000 UNIT (25MCG) TABLET PO SCH (08:02)
[2020-11-27] MEDS: amLODIPine 5 MG TABLET PO SCH (08:02)
[2020-11-27] MEDS: Sennosides 8.6 MG TABLET PO SCH ×2 (14:20→20:14)
[2020-11-27] MEDS: Gabapentin 100 MG CAPSULE PO SCH (20:14)
[2020-11-28] MEDS: *HR* Enoxaparin 40 MG/0.4 ML SYRINGE SQ SCH (06:28)
[2020-11-28 09:01] LABS: Bilirubin,Urine Negative (Negative); Blood,Urine Trace-intact (Negative); Clarity,Urine Clear (Clear); Color,Urine Yellow (Yellow); Glucose,Urine (UA) Normal (Normal); Ketones,Urine Negative (Negative); Leukocyte Esterase,Urine Trace (Negative); Nitrite,Urine Negative (Negative); PH,Urine 6.5 pH Units (5.0-8.0); Protein,Urine Negative (Neg-Trace); Urobilinogen,Urine Normal (Normal)
[2020-11-28 09:09] LABS: Bacteria,Urine Moderate per hpf (None-Few); Squamous Epithelial Cell,Urine Many per hpf (None-Few); Tyrosine Crystal,Urine Present per hpf (None Seen); WBC,Urine 30-50 per hpf (0-3)
[2020-11-28 09:10] LABS: RBC,Urine 0-3 per hpf (0-3)
[2020-11-28 09:11] LABS: Transitional Epi Cells,Urine Moderate per hpf (None-Few)
[2020-11-28] MEDS: QUEtiapine Fumarate 25 MG TABLET PO SCH ×2 (10:25→19:59)
[2020-11-28] MEDS: Cholecalciferol (D-3) 1,000 UNIT (25MCG) TABLET PO SCH (10:25)
[2020-11-28] MEDS: Aspirin Enteric Coated 81 MG Tablet PO SCH (10:26)
[2020-11-28] MEDS: Sennosides 8.6 MG TABLET PO SCH (10:26)
[2020-11-28] MEDS: amLODIPine 5 MG TABLET PO SCH (10:26)
[2020-11-28] MEDS: Sennosides/Docusate Sodium TABLET PO SCH (19:58)
[2020-11-28] MEDS: Gabapentin 100 MG CAPSULE PO SCH (19:58)
[2020-11-28] MEDS: tiZANidine 4 MG TABLET PO PRN (20:00)
[2020-11-29] MEDS: *HR* Enoxaparin 40 MG/0.4 ML SYRINGE SQ SCH (04:21)
[2020-11-29] MEDS: amLODIPine 5 MG TABLET PO SCH (09:25)
[2020-11-29] MEDS: QUEtiapine Fumarate 25 MG TABLET PO SCH ×2 (09:25→21:12)
[2020-11-29] MEDS: Aspirin Enteric Coated 81 MG Tablet PO SCH (09:25)
[2020-11-29] MEDS: Cholecalciferol (D-3) 1,000 UNIT (25MCG) TABLET PO SCH (09:25)
[2020-11-29] MEDS: Sennosides/Docusate Sodium TABLET PO SCH ×2 (09:26→21:12)
[2020-11-29] MEDS: Gabapentin 100 MG CAPSULE PO SCH (21:11)
[2020-11-29] MEDS: tiZANidine 4 MG TABLET PO PRN (21:12)
[2020-11-30] MEDS: *HR* Enoxaparin 40 MG/0.4 ML SYRINGE SQ SCH (05:22)
[2020-11-30] MEDS: Aspirin Enteric Coated 81 MG Tablet PO SCH (08:23)
[2020-11-30] MEDS: amLODIPine 5 MG TABLET PO SCH (08:23)
[2020-11-30] MEDS: QUEtiapine Fumarate 25 MG TABLET PO SCH ×2 (08:23→21:22)
[2020-11-30] MEDS: Sennosides/Docusate Sodium TABLET PO SCH ×2 (08:23→21:22)
[2020-11-30] MEDS: Cholecalciferol (D-3) 1,000 UNIT (25MCG) TABLET PO SCH (08:23)
[2020-11-30] MEDS: Gabapentin 100 MG CAPSULE PO SCH (21:22)
[2020-12-01] MEDS: *HR* Enoxaparin 40 MG/0.4 ML SYRINGE SQ SCH (05:40)
[2020-12-01] MEDS: Sennosides/Docusate Sodium TABLET PO SCH ×2 (09:54→22:34)
[2020-12-01] MEDS: amLODIPine 5 MG TABLET PO SCH (09:54)
[2020-12-01] MEDS: Aspirin Enteric Coated 81 MG Tablet PO SCH (09:54)
[2020-12-01] MEDS: Cholecalciferol (D-3) 1,000 UNIT (25MCG) TABLET PO SCH (09:55)
[2020-12-01] MEDS: QUEtiapine Fumarate 25 MG TABLET PO SCH ×2 (09:55→22:35)
[2020-12-01] MEDS: Gabapentin 100 MG CAPSULE PO SCH (22:35)
[2020-12-01] MEDS: tiZANidine 4 MG TABLET PO PRN (22:44)
[2020-12-02] MEDS: *HR* Enoxaparin 40 MG/0.4 ML SYRINGE SQ SCH (05:14)
[2020-12-02] MEDS: Sennosides/Docusate Sodium TABLET PO SCH ×2 (08:17→20:24)
[2020-12-02] MEDS: Aspirin Enteric Coated 81 MG Tablet PO SCH (08:17)
[2020-12-02] MEDS: amLODIPine 5 MG TABLET PO SCH (08:17)
[2020-12-02] MEDS: QUEtiapine Fumarate 25 MG TABLET PO SCH ×2 (08:17→20:24)
[2020-12-02] MEDS: Gabapentin 100 MG CAPSULE PO SCH (20:25)
[2020-12-03] MEDS: *HR* Enoxaparin 40 MG/0.4 ML SYRINGE SQ SCH (05:14)
[2020-12-03] MEDS: amLODIPine 5 MG TABLET PO SCH (08:34)
[2020-12-03] MEDS: Cholecalciferol (D-3) 1,000 UNIT (25MCG) TABLET PO SCH (08:34)
[2020-12-03] MEDS: Sennosides/Docusate Sodium TABLET PO SCH ×2 (08:34→20:25)
[2020-12-03] MEDS: Aspirin Enteric Coated 81 MG Tablet PO SCH (08:35)
[2020-12-03] MEDS: QUEtiapine Fumarate 25 MG TABLET PO SCH ×2 (08:35→20:25)
[2020-12-03] MEDS: Gabapentin 100 MG CAPSULE PO SCH (20:25)
[2020-12-04] MEDS: *HR* Enoxaparin 40 MG/0.4 ML SYRINGE SQ SCH (04:42)
[2020-12-04] MEDS: Sennosides/Docusate Sodium TABLET PO SCH ×2 (08:04→21:01)
[2020-12-04] MEDS: Aspirin Enteric Coated 81 MG Tablet PO SCH (08:04)
[2020-12-04] MEDS: Cholecalciferol (D-3) 1,000 UNIT (25MCG) TABLET PO SCH (08:04)
[2020-12-04] MEDS: QUEtiapine Fumarate 25 MG TABLET PO SCH ×2 (08:05→21:02)
[2020-12-04] MEDS: amLODIPine 5 MG TABLET PO SCH (08:05)
[2020-12-04] MEDS: *HR* HYDROcodone/Acet 5/325 mg TABLET PO PRN (21:01)
[2020-12-04] MEDS: Gabapentin 100 MG CAPSULE PO SCH (21:02)
[2020-12-05] MEDS: *HR* Enoxaparin 40 MG/0.4 ML SYRINGE SQ SCH (05:21)
[2020-12-05] MEDS: Aspirin Enteric Coated 81 MG Tablet PO SCH (09:38)
[2020-12-05] MEDS: QUEtiapine Fumarate 25 MG TABLET PO SCH ×2 (09:38→19:43)
[2020-12-05] MEDS: Sennosides/Docusate Sodium TABLET PO SCH ×2 (09:38→19:44)
[2020-12-05] MEDS: Cholecalciferol (D-3) 1,000 UNIT (25MCG) TABLET PO SCH (09:38)
[2020-12-05] MEDS: amLODIPine 5 MG TABLET PO SCH (09:39)
[2020-12-05] MEDS: Gabapentin 100 MG CAPSULE PO SCH (19:44)
[2020-12-05] MEDS: tiZANidine 4 MG TABLET PO PRN (19:44)
[2020-12-06] MEDS: *HR* Enoxaparin 40 MG/0.4 ML SYRINGE SQ SCH (06:33)
[2020-12-06 06:48] VITALS: BP 146/76
[2020-12-06] MEDS: Sennosides/Docusate Sodium TABLET PO SCH (09:35)
[2020-12-06] MEDS: amLODIPine 5 MG TABLET PO SCH (09:36)
[2020-12-06] MEDS: QUEtiapine Fumarate 25 MG TABLET PO SCH (09:36)
[2020-12-06] MEDS: Cholecalciferol (D-3) 1,000 UNIT (25MCG) TABLET PO SCH (09:36)
[2020-12-06] MEDS: Aspirin Enteric Coated 81 MG Tablet PO SCH (09:37)
== END 2020-12-06 11:20 | DRG 560 ==
LOC: INPGRE 11-21 11:40
PROVIDERS: ADMIT Family Medicine; ATTEND Family Medicine

== ENCOUNTER 2021-12-14 12:32 | Observation (INO) ==
[2021-12-14] MEDS ORDERED: Naloxone 0.4 MG/ML INJ IVP PRN (14:20)
[2021-12-14] MEDS ORDERED: Ondansetron 4 MG/2 ML VIAL IVP PRN (14:20)
[2021-12-14] MEDS ORDERED: Acetaminophen 325 MG TABLET PO PRN (14:20)
[2021-12-15] MEDS: Benzonatate 100 MG CAPSULE PO PRN (04:29)
[2021-12-15 05:18] LABS: Hemoglobin 12.4 g/dL (11.5-15.4); Mean Corpuscular HGB Conc 33.5 g/dL (31.6-35.5); Mean Corpuscular Volume 95.4 fL (83.0-100.0); Mean Platelet Volume 10.8 fL (9.4-12.4); Platelet Count 228 K/mcL (140-400); Red Blood Count 3.88 M/mcL (3.82-4.97); Red Cell Distribution Width 12.1 % (11.5-14.5); White Blood Count 8.7 K/mcL (4.3-11.1)
[2021-12-15 05:34] LABS: BUN/Creatinine Ratio 11 (6-26); Blood Urea Nitrogen 9 mg/dL (8-23); Carbon Dioxide 24 mEq/L (23-29); Chloride 102 mEq/L (98-107); Glucose 107 mg/dL (70-105); Osmolality,Calculated 281 (280-300); Potassium 3.9 mEq/L (3.5-5.1); Sodium 136 mEq/L (136-145); eGFR For African Americans > 60 (> 60); eGFR For Non-African Americans > 60 (> 60)
[2021-12-15] MEDS: *HR* Enoxaparin 40 MG/0.4 ML SYRINGE SQ SCH (06:37)
[2021-12-15] MEDS: *HR* HYDROcodone/Acet 5/325 mg TABLET PO PRN ×2 (06:42→20:47)
[2021-12-15] MEDS: Trolamine Salicylate/Aloe Vera 85 APPL/85 GM TUBE TP SCH (09:12)
[2021-12-15] MEDS: Sennosides/Docusate Sodium TABLET PO SCH ×2 (09:13→20:48)
[2021-12-15] MEDS: QUEtiapine Fumarate 25 MG TABLET PO SCH ×2 (09:14→20:47)
[2021-12-15] MEDS: Cholecalciferol (D-3) 1,000 UNIT (25MCG) TABLET PO SCH (09:14)
[2021-12-15] MEDS: Aspirin Enteric Coated 81 MG Tablet PO SCH (09:14)
[2021-12-15] MEDS: amLODIPine 5 MG TABLET PO SCH (09:15)
[2021-12-15 12:51] LABS: Adenovirus Not Detected (Not Detect); Bordetella Pertussis Not Detected (Not Detect); Chlamydophila pneumoniae Not Detected (Not Detect); Coronavirus 229E Not Detected (Not Detect); Coronavirus HKU1 Not Detected (Not Detect); Coronavirus NL63 Not Detected (Not Detect); Coronavirus OC43 Not Detected (Not Detect); Human Metapneumovirus Not Detected (Not Detect); Human Rhinovirus/Enterovirus Not Detected (Not Detect); Influenza A Subtype 2009 H1 Not Detected (Not Detect); Influenza B Not Detected (Not Detect); Mycoplasma pneumoniae Not Detected (Not Detect); Parainfluenza Virus 1 Not Detected (Not Detect); Parainfluenza Virus 2 Not Detected (Not Detect); Parainfluenza Virus 3 Not Detected (Not Detect); Parainfluenza Virus 4 Not Detected (Not Detect); Respiratory Syncytial Virus Not Detected (Not Detect); SARS-CoV-2 Not Detected (Not Detect)
[2021-12-15] MEDS ORDERED: *HR* LORazepam 0.5 MG TABLET PO PRN (16:19)
[2021-12-15] MEDS ORDERED: haloperidoL 1 MG TABLET PO PRN (16:19)
[2021-12-15] MEDS: Gabapentin 100 MG CAPSULE PO SCH (20:47)
[2021-12-16 04:28] LABS: Hematocrit 30.4 % (35.3-44.9); Hemoglobin 10.2 g/dL (11.5-15.4); Mean Corpuscular HGB Conc 33.6 g/dL (31.6-35.5); Mean Corpuscular Hemoglobin 32.4 pg (28.0-33.3); Mean Corpuscular Volume 96.5 fL (83.0-100.0); Mean Platelet Volume 10.5 fL (9.4-12.4); Platelet Count 188 K/mcL (140-400); Red Blood Count 3.15 M/mcL (3.82-4.97); Red Cell Distribution Width 12.3 % (11.5-14.5); White Blood Count 5.5 K/mcL (4.3-11.1)
[2021-12-16 04:44] LABS: Alanine Aminotransferase 7 Units/L (7-52); Albumin 3.6 g/dL (3.5-5.7); Albumin/Globulin Ratio 1.6 (1.1-2.2); Alkaline Phosphatase 44 Units/L (34-104); Aspartate Amino Transferase 9 Units/L (13-39); BUN/Creatinine Ratio 20 (6-26); Bilirubin,Total 0.3 mg/dL (0.3-1.0); Blood Urea Nitrogen 20 mg/dL (8-23); Calcium 9.5 mg/dL (8.6-10.3); Carbon Dioxide 28 mEq/L (23-29); Chloride 102 mEq/L (98-107); Globulin 2.3 g/dL (2.4-3.5); Glucose 110 mg/dL (70-105); Magnesium 2.1 mg/dL (1.6-2.6); Osmolality,Calculated 285 (280-300); Potassium 3.7 mEq/L (3.5-5.1); Sodium 136 mEq/L (136-145); Total Protein 5.9 g/dL (6.4-8.9); eGFR For African Americans > 60 (> 60); eGFR For Non-African Americans 53 (> 60)
[2021-12-16 04:58] LABS: Thyroid Stimulating Hormone 1.862 mcIU/mL (0.340-5.600)
[2021-12-16] MEDS: *HR* Enoxaparin 40 MG/0.4 ML SYRINGE SQ SCH (06:31)
[2021-12-16] MEDS: Aspirin Enteric Coated 81 MG Tablet PO SCH (08:51)
[2021-12-16] MEDS: Sennosides/Docusate Sodium TABLET PO SCH ×2 (08:51→20:51)
[2021-12-16] MEDS: QUEtiapine Fumarate 25 MG TABLET PO SCH ×2 (08:52→20:51)
[2021-12-16] MEDS: Cholecalciferol (D-3) 1,000 UNIT (25MCG) TABLET PO SCH (08:52)
[2021-12-16] MEDS: amLODIPine 5 MG TABLET PO SCH (08:52)
[2021-12-16] MEDS: Trolamine Salicylate/Aloe Vera 85 APPL/85 GM TUBE TP SCH (08:52)
[2021-12-16 14:39] LABS: Bilirubin,Urine Negative (Negative); Blood,Urine Negative (Negative); Clarity,Urine Clear (Clear); Color,Urine Yellow (Yellow); Glucose,Urine (UA) Normal (Normal); Ketones,Urine Negative (Negative); Leukocyte Esterase,Urine Negative (Negative); Nitrite,Urine Negative (Negative); Protein,Urine Negative (Neg-Trace); Specific Gravity,Urine 1.025 (1.010-1.025); Urobilinogen,Urine Normal (Normal)
[2021-12-16] MEDS: Gabapentin 100 MG CAPSULE PO SCH (20:51)
[2021-12-17] MEDS: *HR* HYDROcodone/Acet 5/325 mg TABLET PO PRN (05:12)
[2021-12-17] MEDS: *HR* Enoxaparin 30 MG/0.3 ML SYRINGE SQ SCH (05:12)
[2021-12-17] MEDS: Sennosides/Docusate Sodium TABLET PO SCH ×2 (08:37→19:55)
[2021-12-17] MEDS: Aspirin Enteric Coated 81 MG Tablet PO SCH (08:37)
[2021-12-17] MEDS: Trolamine Salicylate/Aloe Vera 85 APPL/85 GM TUBE TP SCH (08:38)
[2021-12-17] MEDS: amLODIPine 5 MG TABLET PO SCH (08:38)
[2021-12-17] MEDS: QUEtiapine Fumarate 25 MG TABLET PO SCH ×2 (08:38→19:55)
[2021-12-17] MEDS: Cholecalciferol (D-3) 1,000 UNIT (25MCG) TABLET PO SCH (08:38)
[2021-12-17] MEDS: Gabapentin 100 MG CAPSULE PO SCH (19:55)
[2021-12-18] MEDS: Benzonatate 100 MG CAPSULE PO PRN (03:43)
[2021-12-18 04:35] LABS: Basophils # 0.1 K/mcL (0.0-0.2); Basophils % 0.7 %; Eosinophils # 0.2 K/mcL (0.0-0.6); Eosinophils % 2.5 %; Hemoglobin 10.4 g/dL (11.5-15.4); Immature Granulocytes % 0.3 % (0-4); Lymphocytes # 1.3 K/mcL (0.6-4.6); Lymphocytes % 19.4 %; Mean Corpuscular HGB Conc 32.5 g/dL (31.6-35.5); Mean Corpuscular Hemoglobin 31.7 pg (28.0-33.3); Mean Corpuscular Volume 97.6 fL (83.0-100.0); Mean Platelet Volume 10.7 fL (9.4-12.4); Monocytes # 0.6 K/mcL (0.0-1.3); Monocytes % 8.9 %; Neutrophils # 4.6 K/mcL (1.6-8.9); Platelet Count 228 K/mcL (140-400); Red Blood Count 3.28 M/mcL (3.82-4.97); Segmented Neutrophils % 68.2 %; White Blood Count 6.8 K/mcL (4.3-11.1)
[2021-12-18 04:50] LABS: BUN/Creatinine Ratio 29 (6-26); Blood Urea Nitrogen 27 mg/dL (8-23); Calcium 9.7 mg/dL (8.6-10.3); Carbon Dioxide 26 mEq/L (23-29); Chloride 103 mEq/L (98-107); Glucose 118 mg/dL (70-105); Magnesium 1.9 mg/dL (1.6-2.6); Osmolality,Calculated 288 (280-300); Potassium 4.2 mEq/L (3.5-5.1); Sodium 136 mEq/L (136-145); eGFR For African Americans > 60 (> 60); eGFR For Non-African Americans 57 (> 60)
[2021-12-18] MEDS ORDERED: GuaiFENesin Liq 200 MG/10 ML UDC PO PRN (04:54)
[2021-12-18] MEDS: *HR* Enoxaparin 30 MG/0.3 ML SYRINGE SQ SCH (05:30)
[2021-12-18] MEDS: Trolamine Salicylate/Aloe Vera 85 APPL/85 GM TUBE TP SCH (08:06)
[2021-12-18] MEDS: QUEtiapine Fumarate 25 MG TABLET PO SCH ×2 (08:07→19:32)
[2021-12-18] MEDS: Sennosides/Docusate Sodium TABLET PO SCH ×2 (08:07→19:32)
[2021-12-18] MEDS: Aspirin Enteric Coated 81 MG Tablet PO SCH (08:07)
[2021-12-18] MEDS: amLODIPine 5 MG TABLET PO SCH (08:07)
[2021-12-18] MEDS: Cholecalciferol (D-3) 1,000 UNIT (25MCG) TABLET PO SCH (08:07)
[2021-12-18] MEDS: Cyanocobalamin (B-12) 1,000 MCG/ML VIAL IM SCH (10:21)
[2021-12-18] MEDS: Gabapentin 100 MG CAPSULE PO SCH (19:32)
[2021-12-19] MEDS: *HR* HYDROcodone/Acet 5/325 mg TABLET PO PRN ×2 (05:02→20:08)
[2021-12-19] MEDS: *HR* Enoxaparin 30 MG/0.3 ML SYRINGE SQ SCH (05:03)
[2021-12-19] MEDS: Trolamine Salicylate/Aloe Vera 85 APPL/85 GM TUBE TP SCH (11:10)
[2021-12-19] MEDS: Aspirin Enteric Coated 81 MG Tablet PO SCH (11:10)
[2021-12-19] MEDS: QUEtiapine Fumarate 25 MG TABLET PO SCH ×2 (11:10→20:09)
[2021-12-19] MEDS: Sennosides/Docusate Sodium TABLET PO SCH ×2 (11:11→20:09)
[2021-12-19] MEDS: Cholecalciferol (D-3) 1,000 UNIT (25MCG) TABLET PO SCH (11:11)
[2021-12-19] MEDS: amLODIPine 5 MG TABLET PO SCH (11:11)
[2021-12-19] MEDS: Cyanocobalamin (B-12) 1,000 MCG/ML VIAL IM SCH (11:14)
[2021-12-19] MEDS: Gabapentin 100 MG CAPSULE PO SCH (20:08)
[2021-12-20] MEDS: *HR* Enoxaparin 30 MG/0.3 ML SYRINGE SQ SCH (05:16)
[2021-12-20] MEDS: Sennosides/Docusate Sodium TABLET PO SCH (08:45)
[2021-12-20] MEDS: Aspirin Enteric Coated 81 MG Tablet PO SCH (08:45)
[2021-12-20] MEDS: amLODIPine 5 MG TABLET PO SCH (08:45)
[2021-12-20] MEDS: Cholecalciferol (D-3) 1,000 UNIT (25MCG) TABLET PO SCH (08:45)
[2021-12-20] MEDS: QUEtiapine Fumarate 25 MG TABLET PO SCH (08:46)
[2021-12-20] MEDS: Cyanocobalamin (B-12) 1,000 MCG/ML VIAL IM SCH (08:46)
[2021-12-20] MEDS: Trolamine Salicylate/Aloe Vera 85 APPL/85 GM TUBE TP SCH (09:19)
[2021-12-20 10:48] VITALS: BP 104/69; PULSE 76; RESP 16; TEMP 98.5; O2SAT 95
[2021-12-31] MEDS ORDERED: Cyanocobalamin (B-12) 1,000 MCG/ML VIAL IM SCH (09:00)
== END 2021-12-20 15:41 ==
LOC: INPGRE
PROVIDERS: ADMIT Family Medicine; ATTEND Family Medicine